=== PATIENT | male | born 1975 | race Caucasian/White ===

== ENCOUNTER 2019-04-13 22:11 | Emergency (ER) | payer MEDICAID ==
[~2019-04-13] VITALS: Ht 177.8 cm; Wt 74.4 kg
--- NOTE | 2019-04-13 22:24 | NUR ---
PT C/O SORE THROAT AND SWOLLEN TONSILS X2 DAYS. CURRENT SMOKER.
[2019-04-13] MEDS ORDERED: DEXAMETHASONE 1 MG TABLET PO STA (22:25)
[2019-04-13] MEDS ORDERED: IBUPROFEN 800 MG TABLET PO STA (22:25)
[2019-04-13] MEDS ORDERED: DEXAMETHASONE 4 MG TABLET ONE (22:29)
[2019-04-13] MEDS ORDERED: IBUPROFEN 200 MG TABLET ONE (22:29)
[2019-04-13] MEDS ORDERED: ACETAMINOPHEN 325 MG TABLET ONE (22:29)
[2019-04-13] MEDS ORDERED: ACETAMINOPHEN 325 MG TABLET PO ONE (22:30)
--- NOTE | 2019-04-13 22:33 | NUR ---
MEDS ADMIN PER JUL. PT REFUSED TYLENOL, D/T TOOK MED PRIOR TO ARRIVAL AT HOME.
[2019-04-13] MEDS ORDERED: DEXAMETHASONE 4 MG TABLET PO STA (22:36)
[2019-04-13] MEDS ORDERED: AMOXICILLIN/CLAV 875-125MG TABLET PO STA (22:42)
[2019-04-13] MEDS ORDERED: AMOXICILLIN/CLAV 875-125MG TABLET ONE (22:50)
--- NOTE | 2019-04-13 22:52 | NUR ---
MEDS ADMIN PER MAR
[2019-04-13 22:59] VITALS: BP 112/62
[2019-04-13] MEDS ORDERED: PLEASE ENTER ALLERGIES MC SCH (23:00)
== END 2019-04-13 23:02 | disposition home or self-care (01) ==
LOC: ED 22:56
DX: J02.0 Streptococcal pharyngitis (principal); F17.210 Nicotine dependence, cigarettes, uncomplicated
CPT/HCPCS: 99284

== ENCOUNTER 2020-01-14 10:24 | Emergency (ER) | payer MEDICAID ==
[~2020-01-14] VITALS: Ht 175.3 cm; Wt 91.5 kg
[2020-01-14 10:39] VITALS: BP 134/83
--- NOTE | 2020-01-14 11:20 | NUR ---
pt presents to ED for rx refill of abilify and remeron. pt is a&o, resps even and unlabored, no complaint. pt given dc instructions and script, pt verifies doses prescribed are correct for current regimen. pt is ambulatory to dc desek with steady gait. nadn at dc.
== END 2020-01-14 11:20 | disposition home or self-care (01) ==
LOC: ED 11:00
DX: J02.9 Acute pharyngitis, unspecified (principal); Z76.0 Encounter for issue of repeat prescription; F17.200 Nicotine dependence, unspecified, uncomplicated
CPT/HCPCS: 99281

== ENCOUNTER 2020-03-22 16:15 | Emergency (ER) | payer MEDICAID ==
[~2020-03-22] VITALS: Ht 175.3 cm; Wt 92.8 kg
[2020-03-22 16:24] VITALS: BP 122/85
== END 2020-03-22 16:41 | disposition home or self-care (01) ==
LOC: ED 16:39
DX: F32.9 Major depressive disorder, single episode, unspecified (principal); Z76.0 Encounter for issue of repeat prescription
CPT/HCPCS: 99281

== ENCOUNTER 2020-07-09 12:03 | Emergency (ER) | payer MEDICAID ==
[~2020-07-09] VITALS: Ht 175.3 cm; Wt 91.1 kg
--- NOTE | 2020-07-09 12:29 | NUR ---
PATIENT WALKED BACK FROM TRIAGE WITH CHIEF C/O LEFT KNEE AND LOWER BACK PAIN. PATIENT STATES HE HEARD HIS LEFT KNEE POP AT WORK TUESDAY AND THEN STARTED HAVING SOME PAIN IN HIS LEFT KNEE AND LOWER BACK. TASH ALVAREZ, CALL LIGHT WITHIN REACH.
[2020-07-09] MEDS ORDERED: METHOCARBAMOL 750 MG TABLET ONE (12:44)
[2020-07-09] MEDS ORDERED: KETOROLAC 30 MG/1 ML ONE (12:44)
--- NOTE | 2020-07-09 12:48 | NUR ---
PATIENT MEDICATED PER eMAR. PATIENT TO X-RAY.
[2020-07-09] MEDS ORDERED: METHOCARBAMOL 750 MG TABLET PO ONE (13:00)
[2020-07-09] MEDS ORDERED: KETOROLAC 30 MG/1 ML IM ONE (13:00)
--- NOTE | 2020-07-09 13:44 | NUR ---
BREAK RN: PT AMBULATED TO BATHROOM W/STEADY GAIT
--- NOTE | 2020-07-09 14:01 | NUR ---
BREAK RN: PROVIDER AT BEDSIDE TO DISCUSS DISCHARGE AND PLAN OF CARE.
[2020-07-09 14:31] VITALS: BP 106/61
--- NOTE | 2020-07-09 14:31 | NUR ---
Patient given discharge instructions and prescription and they have confirmed that they understand the instructions. Work note provided to patient. Patient stable and ambulatory with steady gait from ED to private vehicle.
== END 2020-07-09 14:32 | disposition home or self-care (01) ==
LOC: ED 14:20
DX: S39.012A Strain of muscle, fascia and tendon of lower back, initial encounter (principal); S80.02XA Contusion of left knee, initial encounter; X58.XXXA Exposure to other specified factors, initial encounter; Y93.89 Activity, other specified; Y92.89 Other specified places as the place of occurrence of the external cause; Y99.8 Other external cause status
CPT/HCPCS: 72110; 73564; 96372; 99284; J1885